=== PATIENT | male | born 1950 | race Caucasian/White ===

== ENCOUNTER 2018-12-26 10:55 | Day surgery (SDC) | payer MEDICARE ==
[2018-12-26] MEDS ORDERED: diphenhydrAMINE 25 MG CAP PO SCH (11:30)
[2018-12-26] MEDS ORDERED: Acetaminophen 500 MG TAB PO SCH (11:30)
[2018-12-26 16:10] VITALS: BP 110/71; TEMP 98.2
[2018-12-26 16:37] LABS: Hemoglobin 8.1 g/dL (14.0-18.0); Mean Corpuscular HGB CONC 32.5 g/dL (32.0-36.0); Mean Corpuscular Hemoglobin 34.1 pg (27.0-31.0); Mean Platelet Volume 8.4 fL (7.4-10.4); Platelet Count 55 thou/uL (130-400); RBC Distribution Width 22.3 % (11.5-14.5); Red Blood Cell (RBC) Count 2.39 mill/uL (4.70-6.10); White Blood Cell (WBC) Count 45.8 thou/uL (4.8-10.8)
[2018-12-26 16:58] LABS: Anisocytosis SLIGHT = 6-15 cells (100X) (0-5/hpf); Band 1 % (5-11); Differential Comment Blast-Like Cell(s); Lymphocytes 48 % (21-51); MDiff Complete? YES; Macrocytosis SLIGHT = 6-15 cells (100X) (0-5/hpf); Monocytes 1 % (0-10); Neutrophil 10 % (42-75); Platelet Morphology Comment Appears Decreased; Poikilocytosis SLIGHT = 6-15 cells (100X) (0-5/hpf)
== END 2018-12-26 16:41 | disposition home or self-care (01) ==
LOC: ONC/OP 10:55 → ONC 10:59 → ONC/OP 16:41
PROVIDERS: ATTEND Internal Medicine Medical Oncology
PROC: 30233R1 Transfusion of Nonautologous Platelets into Peripheral Vein, Percutaneous Approach (ICD-10-PCS; principal; 2018-12-26)
DX: D69.6 Thrombocytopenia, unspecified (principal); D64.9 Anemia, unspecified
CPT/HCPCS: 36415; 36430; 85025; 85060; 86850; 86900; 86901; P9035; Q0163

== ENCOUNTER 2019-01-02 10:21 | Day surgery (SDC) | payer MEDICARE ==
[2019-01-02 10:45] VITALS: BMI 26.1
[2019-01-02] MEDS ORDERED: diphenhydrAMINE 25 MG CAP PO SCH (10:45)
[2019-01-02] MEDS ORDERED: Acetaminophen 500 MG TAB PO SCH (10:45)
[2019-01-02 17:33] VITALS: TEMP 98
[2019-01-02 18:33] VITALS: BP 123/70
[2019-01-02 18:45] LABS: Hemoglobin 8.4 g/dL (14.0-18.0); Mean Corpuscular HGB CONC 33.6 g/dL (32.0-36.0); Mean Corpuscular Hemoglobin 33.6 pg (27.0-31.0); Mean Corpuscular Volume 99.9 fL (78.0-98.0); Mean Platelet Volume 9.5 fL (7.4-10.4); Platelet Count 46 thou/uL (130-400); RBC Distribution Width 21.4 % (11.5-14.5); Red Blood Cell (RBC) Count 2.49 mill/uL (4.70-6.10); White Blood Cell (WBC) Count 47.5 thou/uL (4.8-10.8)
[2019-01-02 18:54] LABS: Anisocytosis MODERATE=16-30 cells (100X) (0-5/hpf); Blast 61 % (0-0); Eosinophils 1 % (0-10); Lymphocytes 30 % (21-51); MDiff Complete? YES; Monocytes 3 % (0-10); Neutrophil 4 % (42-75); Nucleated RBC 2 % (0); Ovalocytes SLIGHT = 2-5 cells (100X) (0-1/hpf); Platelet Morphology Comment Appears Decreased; Poikilocytosis SLIGHT = 6-15 cells (100X) (0-5/hpf); Polychromasia SLIGHT = 2-3 cells (100X) (0-2/hpf); Reactive Lymphocytes 1 % (0-10); Schistocytes SLIGHT = 2-5 cells (100X) (0-1/hpf); Tear Drops SLIGHT = 2-5 cells (100X) (0-1/hpf)
[2019-01-02] MEDS ORDERED: Prevnar 13-Val Conj/PF 0.5 ML SYRINGE IM ONE (21:00)
== END 2019-01-02 18:35 | disposition home or self-care (01) ==
LOC: ONC/OP 10:21 → ONC 10:22 → ONC/OP 18:35
PROVIDERS: ATTEND Internal Medicine Hematology & Oncology
PROC: 30233R1 Transfusion of Nonautologous Platelets into Peripheral Vein, Percutaneous Approach (ICD-10-PCS; principal; 2019-01-02)
PROC: 30233N1 Transfusion of Nonautologous Red Blood Cells into Peripheral Vein, Percutaneous Approach (ICD-10-PCS; 2019-01-02)
DX: D64.9 Anemia, unspecified (principal); D69.6 Thrombocytopenia, unspecified
CPT/HCPCS: 36415; 36430; 85025; 86850; 86900; 86901; P9016; P9035

== ENCOUNTER 2019-01-14 16:20 | Day surgery (SDC) | payer MEDICARE ==
[2019-01-14 17:04] VITALS: BMI 24.9
[2019-01-14] MEDS ORDERED: diphenhydrAMINE 25 MG CAP PO SCH (18:00)
[2019-01-14] MEDS ORDERED: Acetaminophen 500 MG TAB PO SCH (18:00)
[2019-01-15 02:12] VITALS: BP 131/88; TEMP 97.9
== END 2019-01-15 02:02 | disposition home or self-care (01) ==
LOC: SDC/OP 16:20 → T4-B 16:26 → SDC/OP 01-15 02:02
PROVIDERS: ATTEND Internal Medicine Hematology & Oncology
PROC: 30233R1 Transfusion of Nonautologous Platelets into Peripheral Vein, Percutaneous Approach (ICD-10-PCS; principal; 2019-01-14)
PROC: 30233N1 Transfusion of Nonautologous Red Blood Cells into Peripheral Vein, Percutaneous Approach (ICD-10-PCS; 2019-01-14)
DX: D64.9 Anemia, unspecified (principal); D69.6 Thrombocytopenia, unspecified
CPT/HCPCS: 36430; 86850; 86900; 86901; 86920; P9016; P9035

== ENCOUNTER 2019-01-20 11:21 | Day surgery (SDC) | payer MEDICARE ==
[2019-01-20] MEDS ORDERED: Acetaminophen 500 MG TAB PO SCH (11:45)
[2019-01-20] MEDS ORDERED: diphenhydrAMINE 25 MG CAP PO SCH (11:45)
[2019-01-20 19:54] VITALS: BP 131/74; TEMP 98
[2019-01-20 20:30] LABS: Hemoglobin 6.5 g/dL (14.0-18.0); Mean Corpuscular HGB CONC 32.1 g/dL (32.0-36.0); Mean Corpuscular Hemoglobin 30.7 pg (27.0-31.0); Mean Corpuscular Volume 95.7 fL (78.0-98.0); RBC Distribution Width 19.6 % (11.5-14.5); Red Blood Cell (RBC) Count 2.12 mill/uL (4.70-6.10); White Blood Cell (WBC) Count 75.8 thou/uL (4.8-10.8)
[2019-01-20 21:00] LABS: Hypochromia SLIGHT = 6-15 cells (100X) (0-5/hpf); Lymphocytes 24 % (21-51); MDiff Complete? YES; Metamyelocyte 10 % (0-0); Monocytes 6 % (0-10); Platelet Count 31 thou/uL (130-400); Platelet Morphology Comment Appears Decreased; Promyelocytes 3 % (0-0); Reactive Lymphocytes 3 % (0-10)
== END 2019-01-20 21:12 | disposition home or self-care (01) ==
LOC: ONC/OP 11:21 → ONC 11:24 → ONC/OP 21:12
PROVIDERS: ATTEND Internal Medicine Hematology & Oncology
PROC: 30233H1 Transfusion of Nonautologous Whole Blood into Peripheral Vein, Percutaneous Approach (ICD-10-PCS; principal; 2019-01-20)
DX: D64.9 Anemia, unspecified (principal); D69.6 Thrombocytopenia, unspecified
CPT/HCPCS: 36415; 36430; 85025; 86850; 86900; 86901; P9016; P9035; Q0163

== ENCOUNTER 2019-01-27 07:41 | Day surgery (SDC) | payer MEDICARE ==
[2019-01-27] MEDS ORDERED: Acetaminophen 500 MG TAB ONE (12:21)
[2019-01-27 13:56] VITALS: BP 115/72; TEMP 98
[2019-01-27 16:39] LABS: Hemoglobin 6.8 g/dL (14.0-18.0); Mean Corpuscular HGB CONC 32.9 g/dL (32.0-36.0); Mean Corpuscular Hemoglobin 31.1 pg (27.0-31.0); Mean Corpuscular Volume 94.5 fL (78.0-98.0); Mean Platelet Volume 8.9 fL (7.4-10.4); Platelet Count 25 thou/uL (130-400); RBC Distribution Width 18.2 % (11.5-14.5); Red Blood Cell (RBC) Count 2.17 mill/uL (4.70-6.10); White Blood Cell (WBC) Count 61.7 thou/uL (4.8-10.8)
[2019-01-27 17:00] LABS: Anisocytosis SLIGHT = 6-15 cells (100X) (0-5/hpf); Differential Comment Blast-Like Cell(s); Lymphocytes 30 % (21-51); MDiff Complete? YES; Platelet Morphology Comment Appears Decreased
== END 2019-01-27 16:35 | disposition home or self-care (01) ==
LOC: SDC/OP 07:41
PROVIDERS: ATTEND Internal Medicine Hematology & Oncology
PROC: 30233N1 Transfusion of Nonautologous Red Blood Cells into Peripheral Vein, Percutaneous Approach (ICD-10-PCS; principal; 2019-01-27)
DX: D64.9 Anemia, unspecified (principal); D69.6 Thrombocytopenia, unspecified
CPT/HCPCS: 36430; 85025; 86850; 86900; 86901; 86920; P9016; P9035; 36415

== ENCOUNTER 2019-02-03 15:37 | Day surgery (SDC) | payer MEDICARE, BC ==
[2019-02-03] MEDS ORDERED: Acetaminophen 500 MG TAB PO SCH (16:15)
[2019-02-03] MEDS ORDERED: diphenhydrAMINE 25 MG CAP PO SCH (16:15)
[2019-02-03 21:30] VITALS: BP 103/54; TEMP 99.1
[2019-02-03 22:01] LABS: Hemoglobin 5.8 g/dL (14.0-18.0); Mean Corpuscular HGB CONC 32.7 g/dL (32.0-36.0); Mean Corpuscular Hemoglobin 30.4 pg (27.0-31.0); Platelet Count 44 thou/uL (130-400); Red Blood Cell (RBC) Count 1.91 mill/uL (4.70-6.10); White Blood Cell (WBC) Count 59.9 thou/uL (4.8-10.8)
[2019-02-03 22:16] LABS: Blast 49 % (0-0); Lymphocytes 50 % (21-51); MDiff Complete? YES; Monocytes 1 % (0-10); Platelet Morphology Comment Appears Decreased
== END 2019-02-03 22:00 | disposition home or self-care (01) ==
LOC: SDC 15:37 → ONC 15:41 → SDC 22:00
PROVIDERS: ATTEND Internal Medicine Hematology & Oncology
PROC: 30233R1 Transfusion of Nonautologous Platelets into Peripheral Vein, Percutaneous Approach (ICD-10-PCS; principal; 2019-02-03)
PROC: 30233N1 Transfusion of Nonautologous Red Blood Cells into Peripheral Vein, Percutaneous Approach (ICD-10-PCS; 2019-02-03)
DX: D64.9 Anemia, unspecified (principal); D69.6 Thrombocytopenia, unspecified
CPT/HCPCS: 36430; 85007; 85027; 86850; 86900; 86901; 86920; P9016; P9035; 36415; Q0163